=== PATIENT | male | born 1995 | race Caucasian/White ===

== ENCOUNTER 2023-08-10 08:00 | Outpatient (RCR) | payer OTHER, SELFPAY ==
--- NOTE | 2023-08-10 10:23 | BH.PSA_ITS ---
Source of Information Presenting Problems/Circumstances Problems, Referral Source, Mental Status, Client: The patient is a 28-year-old male with a history of depression, intermittent explosive disorder, ADHD, anxiety and possible autism who was referred to the [facility] behavioral health IOP by his outpatient counselor. Referred for worsening depression and anger in the last several months resulting in an outburst while on his honeymoon several months ago. Psychiatric Presentation Psych Issues & Need for Admission Psychiatric Issues:: depression, SI, self-harm via hitting himself, anger, and ADHD Past Psychiatric History MH Treatment Hx Treatment History: First mental health sx at age 14 when pt reports experiencing depression. Reports at 19 first counseling at age 19 for depression and marijuana misuse. First hospitalization:: Denies Medication Trials:: No ECT Therapy:: No Age of first mental health symptoms: First mental health sx at age 14 when pt reports experiencing depression. Reports at 19 first counseling at age 19 for depression and marijuana misuse. Describe (age, circumstance, etc) any past hospitalizations: Denies Current providers for mental health treatment (counselor, psychiatrist, residential case manager, etc.): Aylin Luevano for marital counseling and Dr. Doroteo Jean-Baptiste as individual outpatient provider through [facility] Childhood Significant Childhood Events: Pt went to [employer] and required help in school with extra tutoring but was not in special classes and was not on an IEP. From 1st-6th grade his mother to help him with his homework every day. Family Who currently lives in your home?: Pt lives with his new in an apartment with his parents residing near-by in the same city Family History Family Hx of Psychiatric or AOD Problems: Mother and father are both about 57 years old. Father has ADD. Maternal grandmother and sister have anxiety. No suicides in the family. Maternal great uncle is alcoholic. Ethnicity Culture Do you identify yourself with any particular cultural, ethnic background, or community?: No Sexuality Sexual Orientation: Heterosexual Spirituality Temple Do you currently identify with any organized voodoo?: Religion Beliefs Is there a particular form of support from this community you can use for your recovery?: Yes Mental Status Memory Recent Memory: Fair Remote Memory: Fair Concentration Concentration: Fair Eye Contact Eye Contact: Good Speech Speech: Pressured Thought Process Thought Process: Logical and [place] Insight: Fair Judgment: Fair Behavior: Normal and Anxious Orientation Orientation: Time, Person, Place and Situation Appearance Appearance: Neat/clean Mood Mood: Anxious and Depressed Affect Affect: Appropriate/calm Suicide Assessment Suicidal Ideation Have you ever felt like hurting yourself?: Yes Please explain:: Pt reports passive SI following moments in which she has had an danial outbursts resulting in guilt and feelings of hopelessness. Pt states that he has had impulsive thoughts of suicidal ideation but states that he has made verbal threats about suicide only to get attention from his or others. Were you using ETOH/drugs at the time?: No Suicidal Intentional Rating Scale (SIRS): Suicidal thoughts (past) Physician Notification Violent Behavior/Abuse History Homicidal Ideation Do you have any homicidal thoughts? If so, explain:: No Is there a known potential victim? If yes, who:: No Abuse Have you ever been abused?: No Life Events Are there any other significant life events?: Hardships (significant difficulties in school early on, loss of job a few years ago resulting in a failed lawsuit for reclaimed unemployment funds) Adult Social History Age 19 to Present Describe your current support system:: Describes his , parents, and employer as supports Substance Use Substance Substance Use Type: Alcohol (rarely), Marijuana (age 19 for 1 year, no longer uses) and Caffeine IV Substance Use Do you have a history of IV use?: Denies Leisure/Social Activities Interests What do you enjoy or might be interested in learning about?: He enjoys exercising and exercises 5 to 6 days a week involving running, weightlifting rowing and elliptical product trainer. 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 If yes, describe:: No Court Orders Have you had any past court orders for psychiatric treatment?: No Do you have a present court order for psychiatric treatment?: No Problem Checklist Current Problem Areas Problem List: Depressed mood/sad, Anxiety, Anger/aggression, Inattention and Additional psychosocial stressors (newly and having relationship tension) Discharge Planning Needs Anticipated Follow-Up Mental Health Center (Name/Phone Number):: [facility] Private Therapist/Psychiatrist:: Dr. Carmen Jean-Baptiste (individual), Aylin Luevano (couples) Other (to be determined): Maikel Lovell, pcp Family and Caregiver Contacts:: Sho Release of Information Signed:: Yes Social Sciences Department Chair's Assessment Client's Needs What are the client's goals?: Pt reports wanting to improve his ability to manage his emotions (specifically anger), better manage conflict, and improve stress tolerance What are the client's strengths?: Client is motivated, open about his mental health sx and stressors, willing to try new tx modalities, established with outpatient providers, and has a strong support system Diagnoses Diagnoses Diagnosis #1:: 1. Major depressive disorder, Recurrent, severe without psychosis Diagnosis #2:: 2. Intermittent explosive disorder (F63.81) Diagnosis #3:: 3. ADHD Diagnosis #4:: Role out, Autism Spectrum Disorder Interpretive Summary Interpretive Summary Interpretive Summary: The patient is a 28-year-old male with a history of depression, intermittent explosive disorder, ADHD, anxiety and possible autism who was referred to the [facility] behavioral health IOP by his outpatient counselor. Patient got in June 2023 and his mental health symptoms worsened after he got and reports having an anger outburst on his honeymoon following a disagreement with his . Reports some marital tension since and pt has experienced guilt, passive SI, and some worthlessness/hopelessness since .Patient reports an additional stressor as recent ADHD diagnosis. Reports he found out his father had ADD in the past and he never told the patient about it and the patient became angry that his father had not told him he was at risk for it. The patient has been perseverating on the evil in the world. Reports this was triggered by patient being fired in 2019 from his job and he appealed his unemployment claim but he lost the appeal which caused a lot of stress and anger. He has a history of lifelong issues with anger and social functioning. He denies any history of violence towards people but states he has been violent towards personal property. He endorses sadness and anger, hopelessness, worthlessness, guilt and passive thoughts of . He states that he has had impulsive thoughts of suicidal ideation but states that he has made verbal threats about suicide only to get attention from his or others. Pt denies homicidal ideation, hallucinations, delusions or symptoms of isela ever. For primary support he had is what he has his and friends and family. He is a worrier by nature and ruminates negatively. He denies panic attacks, OCD, eating disorder, trauma or PTSD. He does not have any access to guns. Treatment Plan Recommendations Recommendations Guidelines Recommendations:: The patient will start the IOP in behavioral health at [facility] as the structure, support, education and group therapy will hopefully prevent worsening of the patient's symptoms which could require hospitalization
--- NOTE | 2023-08-10 10:23 | BH.COMM_ITS ---
Communication Note Communication with Client Communication Note: Met with pt to complete initial paperwork and administer the CSSR-S assessment and screening. Updated intake since initial meeting. Pt reports slight increase in depressive sx and passive SI. Reports SI lasts only a few seconds and that he does not truly want to , but sometimes feels hopeless and as if he will never be able to manage his emotions in healthy ways. States depression is usually associated with feeling he is a burden or ?evil person? and does not want to hurt others. Pt reports he does not want to hurt anyone and feels others would be better off without him. Reports his sx escalated to point of putting a knife to his throat last 08/05/22. Upon further inquiry, pt adits this was to get attention from his as he was feeling unwanted and unloved. Denies actually planning to harm himself. Denies suicidal ideation, plan, or intent since. Reports ability to maintain safety and shared , parents, friends, and work are protective factors. Pt reports he has impulsively put a knife to his throat or wrists ?very rarely? in the past, first at age 17. Pt unsure of allison many times but believes it was under 5. Denies ever engaging in cutting himself/breaking the skin. Hx of self-harming via hitting himself, last occurred Tuesday as well. No access to firearms. Pt is a moderate risk per CSSR given hx and recent gesture. Discussed with tx team and pt will be admitted to [facility] level of care with diagnosis of Major depressive disorder F33.2
--- NOTE | 2023-08-10 10:24 | BH.MTP_ITS ---
Master Treatment Plan Patient Information Program Physician:: Dr. Rosy Funes Primary Therapist:: TERESA Carroll Psychiatric Diagnoses Psychiatric Diagnoses:: 1. Major depressive disorder, 2. Intermittent explosive disorder (F63.81) 3. ADHD 4. Rule out autism spectrum disorder high functioning Diagnosis Code(s):: F33.2 Estimated LOS Estimated LOS (in weeks):: 6 Problem/Goal #1 Problem/Goal #1 Stated Goal:: Pt will reduce depressive symptoms, worthlessness, thoughts of , hopelessness, and irritability due to Major Depressive Disorder through IOP Services. Description of Barriers: Pt reports a hx of anger issues, difficulties with social functioning at times, and hx of difficulties processing information quickly. Functional Impact: The patient is a 28-year-old male with a history of depression, intermittent explosive disorder, ADHD, anxiety and possible autism who was referred to the [facility] behavioral health IOP by his outpatient counselor. Patient got in June 2023 and his mental health symptoms worsened after he got and reports having an anger outburst on his honeymoon following a disagreement with his . Reports some marital tension since and pt has experienced guilt, passive SI, and some worthlessness/hopelessness since .Patient reports an additional stressor as recent ADHD diagnosis. Reports he found out his father had ADD in the past and he never told the patient about it and the patient became angry that his father had not told him he was at risk for it. The patient has been perseverating on the evil in the world. Reports this was triggered by patient being fired in 2019 from his job and he appealed his unemployment claim but he lost the appeal which caused a lot of stress and anger. He has a history of lifelong issues with anger and social functioning. He denies any history of violence towards people but states he has been violent towards personal property. He endorses sadness and anger, hopelessness, worthlessness, guilt and passive thoughts of . He states that he has had impulsive thoughts of suicidal ideation but states that he has made verbal threats about suicide only to get attention from his or others. Pt denies homicidal ideation, hallucinations, delusions or symptoms of isela ever. For primary support he had is what he has his and friends and family. He is a worrier by nature and ruminates negatively. He denies panic att acks, OCD, eating disorder, trauma or PTSD. He does not have any access to guns. Goal Relevant Strengths/Supports: Pt is resilient, willing to ask for help, and motivated to better understand and manage his mental health sx. Objectives Objective #1: Stated Objective: Pt will learn and utilize 2-3 healthy coping strategies to better manage depressive symptoms and reduce DSM-5 symptoms for depression, anger, and SI. Interventions: Through group and individual sessions, therapist will help pt identify triggers and warning signs of depression and emotional dysregulation including emotional, physical, and behavioral changes. Therapist will teach pt various coping skills to manage his symptoms. Therapist will use cognitive restructuring techniques and help pt gain awareness of negative thoughts that reinforce depressive cycles. Therapist will help pt incorporate mindfulness and emotional regulation skills when dealing with difficult situations. Discharge Criteria: Pt will have met this goal when he can report learning and using at least 2 coping skills to manage depressive symptoms and his DSM-5 scores for depression, anger, and SI have decreased Target Date: 09/21/23 Review Date: 08/31/23 Objective #2: Stated Objective: Pt will identify at least 2-3 negative self-talk messages used to reinforce negative core beliefs, worthlessness, and isolation and replace thoughts with balanced, realistic messages. Interventions: Therapist will help pt identify distorted, negative beliefs about self and replace with more realistic, affirmative messages. Therapist will use CBT and DBT to help pt increase insight to the connection between thoughts, emotions, and behaviors. Therapist will encourage pt to practice thought challenging. Discharge Criteria: Pt will have achieved this goal when can verbalize at least 2 cognitive distortions and effectively replace those thoughts with affirmative messages. Problem/Goal #2 Problem/Goal #2 Stated Goal:: Pt will reduce anxiety, avoidance, and ruminations. Description of Barriers: Pt reports a hx of anger issues, difficulties with social functioning at times, and hx of difficulties processing information quickly. Functional Impact: The patient is a 28-year-old male with a history of depression, intermittent explosive disorder, ADHD, anxiety and possible autism who was referred to the [facility] behavioral health IOP by his outpatient counselor. Patient got in June 2023 and his mental health symptoms worsened after he got and reports having an anger outburst on his honeymoon following a disagreement with his . Reports some marital tension since and pt has experienced guilt, passive SI, and some worthlessness/hopelessness since .Patient reports an additional stressor as recent ADHD diagnosis. Reports he found out his father had ADD in the past and he never told the patient about it and the patient became angry that his father had not told him he was at risk for it. The patient has been perseverating on the evil in the world. Reports this was triggered by patient being fired in 2019 from his job and he appealed his unemployment claim but he lost the appeal which caused a lot of stress and anger. He has a history of lifelong issues with anger and social functioning. He denies any history of violence towards people but states he has been violent towards personal property. He endorses sadness and anger, hopelessness, worthlessness, guilt and passive thoughts of . He states that he has had impulsive thoughts of suicidal ideation but states that he has made verbal threats about suicide only to get attention from his or others. Pt denies homicidal ideation, hallucinations, delusions or symptoms of isela ever. For primary support he had is what he has his and friends and family. He is a worrier by nature and ruminates negatively. He denies panic att acks, OCD, eating disorder, trauma or PTSD. He does not have any access to guns. Goal Relevant Strengths/Supports: Pt is resilient, willing to ask for help, and motivated to better understand and manage his mental health sx. Objectives Objective #1: Stated Objective: Pt will identify 2-3 anxiety triggers and 2 coping skills to use when feeling anxious to manage anxiety as shown by reducing DSM-5 scores for anxiety Interventions: Therapist will provide education on anxiety, avoidance behaviors, and maintenance cycles. Therapist will help pt explore personal symptoms and warning signs of anxiety. Therapist will teach pt coping skills to improve emotional regulation, mindfulness, and distress tolerance to help pt cope with anxiety in the moment. Discharge Criteria: Pt will have accomplished this goal when he can bernardino ntify at least 2 triggers and report using 2 coping skills to manage anxiety. Additionally, pt will have accomplished this goal AEB reduction of DSM-5 scores for anxiety. Target Date: 09/21/23 Review Date: 08/31/23 Objective #2: Stated Objective: Pt will increase ability to manage stressors and anxiety by gaining 2-3 distress tolerance skills. Interventions: Through group and individual therapy, pt will learn various coping skills to help manage stress and anxiety. Therapist will utilize DBT distress tolerance skills to increase awareness and give pt tools to manage anxiety and triggers more effectively. Therapist will provide psychoeducation on emotional regulation and help pt identify unhealthy coping skills he wants to change. Discharge Criteria: Pt will have accomplished this goal when can report improved ability to manage stressors and identify at least 2 distress tolerance skills. Target Date: 09/21/23 Review Date: 08/31/23
--- NOTE | 2023-08-10 13:18 | BH.PSY.EVA_ITS ---
Psychiatric Evaluation Initial Evaluation Initial Evaluation: History of Present Illness: [] The patient is a 28-year-old male with a history of depression, intermittent explosive disorder, ADHD, anxiety and possible autism who was referred to the [facility] behavioral health IOP by his outpatient counselor. The patient was on June 25, 2023 and currently lives with his 26-year-old and his parents live nearby and are supportive. The patient's works and is also studying for the [employer] as she is premed. 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 Patient got in June 2023 and his mental health symptoms worsened after he got and he was having anger outburst on his honeymoon which was June 27 to July 05, 2023. This caused some marital issues and the patient also then became depressed. He has had passive thoughts of and passive suicidal ideation. The patient states that he held a knife to his throat 5 days ago to get attention from his and states that he was not suicidal. Patient also was upset because he found out his father had ADD in the past and he never told the patient about it and the patient was diagnosed with ADHD in January 2022 and the patient became angry that his father had not told him he was at risk for it. The patient was perseverating on the evil in the world at his intake but he says this has lessened now that he is on Lexapro for the past week. The patient was fired in 2019 from his job and he appealed his unemployment claim but he lost the appeal and had to pay money in January 2022 or and this also caused a lot of stress and anger. He has a history of lifelong issues with anger and social functioning. He denies any history of violence towards people but states he has been violent towards personal property. He endorses sadness at times and anger at other times. He endorses hopelessness, worthlessness and guilt. He enjoys working out with weights still and his job and his . His weight and appetite are stable and he is sleeping 7 to 8 hours a night. Energy level is okay and concentration is okay if he takes his Vyvanse. He endorses guilt and passive thoughts of . He states that he has had impulsive thoughts of suicidal i deation but states that he has made verbal threats about suicide only to get attention from his or others. He states that about 10 days ago he felt that he may have had active suicidal ideation impulsively but had no definite plan. He denies homicidal ideation, hallucinations, delusions or symptoms of isela ever. For primary support he had is what he has his and friends and family. He is a worrier by nature and ruminates negatively. He denies panic attacks, OCD, eating disorder, trauma or PTSD. He does not have any access to guns. He has never cut or burn himself but he has been passed his head and on a door and he hits himself at times in the head since childhood. Current Psychiatric Medications: [] Vyvanse 20 mg p.o. every morning; Lexapro 10 mg p.o. daily (x 8 days) Past Psychiatric History: [] He has a Dr. Jean-Baptiste is his counselor and Dr. Romo as his couples therapist. PCP gives meds. First counseling at age 19 for depression and using too much marijuana. He was first depressed at age 14 but took his first psych meds around age 27 which was Adderall XR for ADHD. No psych admits ever no suicide attempts ever and no other psych meds. Substance Use History: [] Heavy marijuana use is a at age 19 for 1 year. Last use marijuana few years ago. Non-smoker no vaping and no other drugs. Uses alcohol Allergies: [] Versed Medications: [] Psych meds as dictated above plus several supplements including 5-hydroxytryptophan, protein powder and vitamins. Past Medical History: [] No illnesses. Had a mole removed at age 12 and wisdom teeth surgery. Normal sexual function. Heterosexual. Family Psychiatric History: [] Mother and father about about both about 57 years old. Father has ADD. Maternal grandmother and sister have anxiety. No suicides in the family. Maternal great uncle is alcoholic. Patient says that his whole mom's family has addictive personality and to him it means that they get hooked on different topics and obsess over them. Personal/Social History: [] Patient was born in [place] and raised in [place] and describes his childhood as having loving parents but having a lot of learning challenges . He went to [employer] and required help in school with extra tutoring but was not in special classes and was not on an IEP. From 1st-6th grade his mother to help him with his homework every day. He denies any verbal, physical or sexual trauma. He graduated high school. He went to [employer] got a BS and visual sciences or emergent digital technology is which involve a lot of computer and security stuff. He enjoys exercising and exercises 5 to 6 days a week involving running, weightlifting rowing and elliptical care trainer. He got in June 2023 and they have been together almost 4 years. His is supportive and they have been doing okay but he says their marriage was a little ashely due to his mental health issues recently. But he loves his deeply. Legal History: [] No arrests. Has furniture delivery driver's license. No DUIs. Review of Systems: [] Negative except as noted in present illness. Vital Signs: [] Vital signs reviewed in nurses notes and updated and the patient is deemed medically able to participate in the IOP. Laboratory: Patient does not remember having blood work in recent years. Mental Status Examination: [] The patient is a 28-year-old male wearing glasses and otherwise appearing normal for stated age and ambulatory with a normal gait. He is casually dressed and groomed with good hygiene he has no psychomotor agitation or retardation. He is cooperative and pleasant during the interview. Eye contact is good and speech is normal rate and rhythm and fluent with no pressure. Mood is depressed and angry at times. Affect is full and normal. Thought process is goal-directed and organized. Thought content: There is evidence of passive thoughts of and recent suicidal ideation but no current suicidal ideation. There is no evidence of plan for suicide, homicidal ideation, hallucinations, delusions or isela symptoms. Reality testing is intact. Intelligence is above average. Judgment is intact. Insight is limited but some present. Diagnoses: [] Recurrent, severe without psychosis 1. Major depressive disorder, 2. Intermittent explosive disorder (F63.81) 3. ADHD 4. Rule out autism spectrum disorder high functioning 4. Primary support issues Plan: [] The patient will start the IOP in behavioral health at [facility] as the structure, support, education and group therapy will hopefully prevent worsening of the patient's symptoms which could require hospitalization. He felt safe during the interview and if it anytime he does not feel safe he will let us know or go to the emergency room. No medication changes were made today as he is only been on his Lexapro for 1 week. Long discussion was had with the patient that he should discontinue his 5- hydroxytryptophan when he is taking SSRIs as they could cause excess serotonin symptoms. Patient agrees to get blood work in the form of a TSH and a vitamin D. He will continue to follow-up with his outpatient providers and I will see the patient in follow-up in 2 weeks.
--- NOTE | 2023-08-10 13:31 | BH.DR.ITP ---
Initial Treatment Plan Patient Information Visit Information: ADMISSION DATE: EXPECTED LOS: 4-6 weeks Problems/Symptoms Problem #1:: Mood lability Symptom:: Depression, sadness, anger outbursts, hopelessness, worthlessness, passive thoughts of , guilt, thoughts of self-harm and recent suicidal ideation Problem #2:: Anxiety Symptom:: Worry, rumination
--- NOTE | 2023-08-11 09:05 | BH.SGPN.GN ---
Behaviors/Verbalizations/Mental Status: [] Pt alert and oriented, casually dressed and groomed. Eye contact good. Motor activity appropriate. Speech within normal limits. Affect congruent, mood content. Thoughts linear, logical, no signs of hallucinations or delusions. Reviewed pt?s symptom tracker, no risk for suicidal ideation, plan, or intent 08/11/23 Client Response/Progress/Benefit: []Pt responded well to session, participating in processing and providing supportive feedback. Pt reports feeling hopeful this morning sharing that it is his first day in the program and he is excited about learning new skills. Discussed a hx of difficulties in regulating his emotions, specifically anger. Shared this has begun to impact his marriage and he is looking forward to learning how to better recognize and manage his emotions and handle conflict in healthier ways. Additionally shared newly being diagnosed with ADHD and Autism which he is looking to learn how to better navigate. Pt appeared to benefit from self-reflection on areas of progress, as well as from group support. Pt will continue IOP tx to improve mood stability, continue to provide support, and improve distress tolerance. Narrative Note: []
--- NOTE | 2023-08-11 10:10 | BH.SGPN.GN ---
Behaviors/Verbalizations/Mental Status: [] Eye contact is good. Motor activity is appropriate. Appearance is casual. Speech is Appropriate. Mood is euthymic. Affect is congruent. Thoughts are linear and logical. No evidence of psychosis. Client Response/Progress/Benefit: []Pt engaged participant AEB listening to others, engaging in activity, and providing feedback at times. Attentive during psychoeducation and provided insight into obstacles in the way of mental wellness. Pt shared with group current mental health reality and desired mental health reality. Stated coming to IOP as step he is currently making to get closer to desired reality. Identified barriers to desired reality include: Not enough time, fair judgment, low energy, behind on priorities, and is not interested in things. Benefited from taking look at current mental health state and obstacles for progress. Pt to continue IOP to improve daily functioning, improve distress tolerance, and prevent decompensation.
--- NOTE | 2023-08-11 11:10 | BH.SGPN.GN ---
Behaviors/Verbalizations/Mental Status: []Pt alert and oriented, casually dressed and groomed. Eye contact good. Motor activity appropriate. Speech within normal limits. Affect congruent, mood anxious, depressed. Thoughts linear, logical, no signs of hallucinations or delusions. Client Response/Progress/Benefit: []Pt first day of tx and did well to remain an active participant, encouraging peers and contributed as group brainstormed ideas on how to cope with internal barriers that keep Pt's stuck from moving towards goals. Worked with group to identify strategies to help overcome barriers. Identified personal barriers to desired reality. Pt wants to work on overcoming the barrier of low motivation by rewarding himself with 5 minutes of an enjoyable activity after completing 3 small tasks. Benefited from group by identifying obstacles and solutions to desired reality.? Pt to continue IOP to improve mood stability, reduce the use of unhealthy coping skills, and improve self-compassion. Narrative Note: []
--- NOTE | 2023-08-12 09:05 | BH.SGPN.GN ---
Behaviors/Verbalizations/Mental Status: [] Pt alert and oriented, neatly dressed and groomed. Eye contact good. Motor activity appropriate. Speech rapid and tangential-appears to be pt's baseline per his report. Affect congruent, mood hopeful Thoughts linear, logical, no signs of hallucinations or delusions. Reviewed pt?s symptom tracker, no risk for suicidal ideation, plan, or intent 08/12/23 Client Response/Progress/Benefit: []Pt responded well to session, attentive and receptive to feedback. Pt reports feeling determined this morning as pt feels ready to get better and work on his anger issues. Pt shared he has to accept the way I have acted to my and the circumstances that led to pt getting mental health treatment. Pt reported one of the reasons he came to IOP was because he had a public outburst towards his on their honeymoon. Pt reported he has lived with ADHD, anger, and potential Autism Spectrum for many years. Pt reeceptive to group feedback and encouragement which pt appeared to benefit from. Pt will continue IOP tx to prevent decompensation, improve healthy coping skills, and improve daily functioning. Narrative Note: []
--- NOTE | 2023-08-12 10:00 | BH.SGPN.GN ---
Behaviors/Verbalizations/Mental Status: [] Client alert and oriented, casually dressed and groomed. Eye contact good. Motor activity appropriate. Speech within normal limits. Affect congruent, mood euthymic. Thoughts linear, logical, no signs of hallucinations or delusions. Client Response/Progress/Benefit: [] Client responded well to session, contributing to discussion and engaged during the activity. Attentive during discussion on the quote. Group identified the benefits of change which included: personal growth, increased confidence, improving mental health, and creating momentum. Worked with the group to identify barriers to change, which included: uncomfortable emotions such as anxiety, lack of motivation, fatigue, pain, and physical barriers. Client also reflected on how past experiences shaped way he goes about changed, gave example of struggling to learn to things when he was younger makes it hard for him to make changes. Client participated along with group in activity where they identified and discussed the emotions related to change. Benefited from increased awareness and understanding of emotions, benefits, and barriers related to change. Will continue IOP tx to continue to combat distortions that reinforce low self-esteem, anxiety, and depression. Narrative Note: []
--- NOTE | 2023-08-12 11:10 | BH.SGPN.GN ---
Behaviors/Verbalizations/Mental Status: [] Client alert and oriented, casually dressed and groomed. Eye contact good. Motor activity appropriate. Speech within normal limits. Affect congruent, mood euthymic. Thoughts linear, logical, no signs of hallucinations or delusions. Client Response/Progress/Benefit: [] Client responded well to session, attentive and provided in put throughout. Did well to process activity and work with group to relate the strategies used to overcome barriers in the activity to managing change in own life. Client identified a goal they would like to make is to support desired change is to journal everyday and stay consistent. Client identified currently being in contemplation stage for this particular change. Appeared to benefit from identifying a small goal to work towards. Client will continue IOP tx to prevent decompensation, gain healthy coping skills, and improve daily mood. Narrative Note: []
--- NOTE | 2023-08-18 10:10 | BH.SGPN.GN ---
Behaviors/Verbalizations/Mental Status: []Pt alert and oriented, casually dressed and groomed. Eye contact good. Motor activity appropriate. Speech within normal limits. Affect congruent, mood euthymic. Thoughts linear, logical, no signs of hallucinations or delusions. Client Response/Progress/Benefit: []Pt receptive of session, actively engaged throughout AEB taking notes, providing input, and listening to discussion. Appeared to connect with group topic of cognitive distortions and the impact of thought patterns on mental health, coping behaviors, and relationships. Pt connected most with distortions of labeling, all or nothing thinking, and jumping to conclusions. Pt appeared to benefit from gaining insight on distorted thinking patterns and how this impacts overall mental health. Will continue IOP tx to continue building healthy coping skills, improve distress tolerance, and prevent decompensation.
--- NOTE | 2023-08-18 11:15 | BH.SGPN.GN ---
Behaviors/Verbalizations/Mental Status: [] Eye contact is good. Motor activity is within normal limits. Appearance is casual. Speech is Appropriate. Mood is content. Affect is congruent. Thoughts are linear and logical. No evidence of psychosis. Client Response/Progress/Benefit: [] Pt was an active participant during group discussions and activity. Pt was placed in a smaller group and participated in quiz-show format in which small groups competed against each-other to answer questions based on identifying, challenging, and reframing cognitive distortions. Pt was engaged in the smaller group, participated in group interactions to brainstorm answers, and appeared to be comprehending cognitive distortions. Stated learning that ?Often times distorted thoughts lead to pt feeling scattered and becoming angry?. Benefited from gaining further insight and awareness of cognitive distortions as well as practicing ways to reframe and challenge thoughts. Will continue in [facility] to promote use of anger management skills, stabilize mood, and improve communication with supports. Narrative Note: []
--- NOTE | 2023-08-18 14:26 | BH.MDN_ITS ---
Multi-Disciplinary Note Note 30-min Individual: Time Started:: 09:27 Date: 08/18/23 Purpose of session/treatment goals addressed:: To address current stressors, gather more information on pt's history and tx goals, and build trust and rapport. Additionally, began working on identifying anger warning signs and triggers. Eye Contact:: Good Motor Activity:: Appropriate Appearance:: Neat and Casual Speech:: Appropriate Mood:: Anxious and Dysthymic Affect:: Congruent Thoughts:: Linear, Logical and No evidence of hallucinations/delusions noted Staff Interventions:: motivational interviewing, rapport building, strengths perspective, treatment planning and taught coping skills (deep angelica athing and progressive muscle relaxation) Client Response:: Pt responded well to session, open to meeting with therapist. Pt shared he feels the IOP program has been enjoyable thus far and he has already learned skills he is using in his home life. Pt described practicing healthy distraction when recognizing he is becoming upset, scattered, or agitated. Provided an example from this past weekend in which pt removed himself from the environment and took time outside to load the [place] presents into the car. Shared he recognized his thoughts were scattered and remaining in the house would have only escalated things, so he took a step away. Pt shared struggling with lifelong anger which was resurfaced during his honeymoon in June where pt had a ?public outburst?. Pt described increased marital discord since and has begun couple?s counseling in recent weeks. Therapist commended pt for use of emotion regulation skills over the weekend and taking steps to seek help with anger management. Therapist inquired further on what warning signs informed him his anger was increasing. Pt identified feeling warmer, pacing, clenched fists/jaw, muttering to himself, and experiencing an urge to scream. Pt has some insight into his biggest anger trigger as others using a dominating or condescending tone. Shared this happens at times when having a disagreement with his and often escalates the situation. Has created a ?code word? to indicate a need for a break in the discussion, but has limited skills for managing his anger outside of distraction. Receptive of learning and practicing skills of deep breathing and progressive muscle relaxation. Goal to practice over the next week. Pt reports he would like to learn additional grounding and distress tolerance skills. Risks/Concerns:: None noted. Pt denies SI, plan, or intent as of this date 08/19/23 Progress Toward Goals/Plan:: Pt's third day of IOP tx, so no progress to document. Pt reports that his mood has improved since gaining support of the IP program and he is hopeful he will continue to make progress in managing his emotions and stress. Pt identified his tx goals as learning how to talk about his stressors, improve conflict resolution, and better manage his anger. Pt will continue IOP tx to prevent decompensation, improve daily functioning, and increase healthy coping skills. Time Stopped:: 10:00
--- NOTE | 2023-08-19 09:05 | BH.SGPN.GN ---
Behaviors/Verbalizations/Mental Status: [] Pt alert and oriented, neatly dressed and groomed. Eye contact good. Motor activity appropriate. Speech within normal limits. Affect congruent, mood euthymic. Thoughts linear, logical, no signs of hallucinations or delusions. Reviewed pt?s symptom tracker, no risk for suicidal ideation, plan, or intent 08/19/23 Client Response/Progress/Benefit: []Pt responded well to session, participating in the GLAD activity. Pt reports feeling secure this morning sharing that he is not worried about the past or the present right now. PT stated he had couple's counseling last night and it was needed, but there were also some hard truths that pt had to face. Pt stated he is working on bettering himself and he feels grateful for IOP and the acceptance he has received from peers. Pt's stressor today is that he still struggles with the urge to avoid being uncomfortable which has prevented pt from getting better in the past. Pt appeared to benefit from practicing a self-reflection technique and from group support. Pt will continue IOP tx to promote mood stability, increase distress tolerance skills, and improve daily functioning. Narrative Note: []
--- NOTE | 2023-08-19 10:10 | BH.SGPN.GN ---
Behaviors/Verbalizations/Mental Status: []Pt alert and oriented, casually dressed and groomed. Eye contact good. Motor activity appropriate. Speech within normal limits. Affect congruent, mood anxious and euthymic. Thoughts linear, logical, no signs of hallucinations or delusions. Client Response/Progress/Benefit: [] Pt receptive to session AEB contributing to small group discussion, as well as listening attentively to others, and taking notes. Worked with group to brainstorm the positive and negative aspects of stress on physical and mental health. Group did well to identify the benefits of stress as well as the impact of distress on performance, relationships, and mental health. Pt identified their personal top stressors as: work, managing IOP progress, relationship, and exercise. Pt reports when their jar is ?overflowing? pt often gets overstimulated and has a hard time being productive. Pt seemed to benefit from increased awareness of current stressors and impact stress has on mental health. Recommended to continue IOP tx to increase consistent healthy coping skills, improve confidence, and prevent decompensation.
--- NOTE | 2023-08-19 11:10 | BH.SGPN.GN ---
Behaviors/Verbalizations/Mental Status: []Pt alert and oriented, casually dressed and groomed. Eye contact good. Motor activity appropriate. Speech within normal limits. Affect congruent, mood anxious and euthymic. Thoughts linear, logical, no signs of hallucinations or delusions. Client Response/Progress/Benefit: [] Pt was an active participant in group discussions and experiential activity. Was able to identify the connection between the experimental activity and utilization of stress management skills. Pt reported good succeeded because of their clear communication. Attentive during psychoeducation on the 4 A's (Avoid, adapt, alter, accept) of coping with stress. Pt shared plans to utilize the skill of accepting. Pt wants to work on this by accepting that as long as he is moving his body it's healthy for him and it's okay to not always follow what he considers his optimal exercise plan . Benefited from increased awareness of stress management strategies. Will continue in IOP to increase healthy coping skills, improve daily functioning, and prevent decompensation.
== END 2023-08-21 23:59 ==
LOC: BHIOP 08:00
PROVIDERS: Referring Provider Psychiatry & Neurology Psychiatry; Visit Provider Psychiatry & Neurology Psychiatry
DX: F33.2 Major depressive disorder, recurrent severe without psychotic features (principal); F63.81 Intermittent explosive disorder; F90.9 Attention-deficit hyperactivity disorder, unspecified type; R45.851 Suicidal ideations; Z79.899 Other long term (current) drug therapy
CPT/HCPCS: S9480; 90832; 90853

== ENCOUNTER 2023-08-23 07:31 | Outpatient (RCR) | payer OTHER, SELFPAY ==
--- NOTE | 2023-08-25 10:15 | BH.SGPN.GN ---
Behaviors/Verbalizations/Mental Status: []Pt alert and oriented, casually dressed and groomed. Eye contact good. Motor activity appropriate. Speech within normal limits. Affect congruent, mood dysthymic and anxious. Thoughts linear, logical, no signs of hallucinations or delusions. Client Response/Progress/Benefit: []Pt an active participant throughout. Participated during interactive discussion on defining conflict (internal/external) and possible benefits to conflict. Attentive during psychoeducation on conflict styles and engaged during small group activity in which peers identified the benefits and consequences to each conflict style. Pt identified their primary conflict style as avoiding and reports he has done this his whole life so it's a habit now. Shared this has impacted his relationships in the past and more recently. Benefited from increased awareness of the impact of conflict styles in mental health. Will continue in IOP to reinforce healthy coping skills, improve communication with supports, and improve mood stability. Narrative Note: []
--- NOTE | 2023-08-25 11:15 | BH.SGPN.GN ---
Behaviors/Verbalizations/Mental Status: []Pt alert and oriented, neatly dressed and groomed. Eye contact good. Motor activity appropriate. Speech within normal limits. Affect congruent, mood dysthymic. Thoughts linear, logical, no signs of hallucinations or delusions. Client Response/Progress/Benefit: []Pt was an active participant in group discussions and activity. Attentive during psychoeducation. Along with peers was able to reflect on what conflict resolution skills can be useful outside of IOP. Pt chose to continue to work on the conflict resolution skill of taking a time out if things get too heated. Benefited from practicing and learning conflict resolution skills. Will continue in IOP to prevent decompensation, improve daily functioning, and gain emotional regulation skills. Narrative Note: []
--- NOTE | 2023-08-25 11:54 | BH.MDN_ITS ---
Multi-Disciplinary Note Note 45-min Individual: Time Started:: 09:17 Date: 08/25/23 Purpose of session/treatment goals addressed:: Purpose of session was to address tx plan goal #2, as well as identify assertive communication skills he can use in setting boundaries within interpersonal relationships. Eye Contact:: Good Motor Activity:: Appropriate Appearance:: Neat and Casual Speech:: Appropriate Mood:: Euthymic and Anxious Affect:: Congruent Thoughts:: Linear, Logical and No evidence of hallucinations/delusions noted Staff Interventions:: thought challenging, CBT techniques, strengths perspective and taught coping skills (assertive communication skills) Client Response:: Pt responded well to session, openly discussed current sx and stressors. Shared he has seen some improvements in managing his anger, but continues to struggle at times. Did reports practicing progressive muscle relaxation and deep breathing skills during times in which he recognizes his anger warning signs or can tell he has been triggered. Pt shared these skills have helped to calm him and prevent further escalation. Pt went on to discuss that his primary stressor continues to be marital conflict. Reports that a common issue within their marriage is that his feels pt sides with his parents or does not ?stand-up? for her enough. Provided an example of pt?s parents asking multiple follow-up questions if pt and his cancel plans last minute. Pt explained his struggles with several health issues and he does not want to violate her boundaries by sharing additional information when needing to cancel due to an unexpected change in her health. Pt reports he often struggles with oversharing or coming off as ?too short or cold? which upsets his mother. Receptive of discussion on assertive communication and boundary setting with his parents. Went on to discuss the most recent exchange between he and his that had both confused and concerned him. Explained that since his outburst on their honeymoon, his has been bringing up anytime in the past pt did or said something that hurt her feelings. Pt reports wanting to validate her emotions and be empathetic but does not know what he should say or do. Provided an example for earlier in the week in which his brought up something pt said 3 years ago that he had not been aware had bothered her. He expressed trying to apologize and explain he had not meant anything by the comment, but that his had not believed him. Therapist gently challenged pt belief he is responsible for his ?s emotions and aided pt in seeing when he made progress in communication regarding how he handled the exchange. Additionally, discussed addressing this with his and reviewed why bringing up past mistakes in a relationship can be toxic to the health of the relationship moving forward. Pt able to recognize this can maintain resentment, lead to additional conflict, and prevent from enjoying and growing the relationship in the present. Receptive of discussion on forgiveness does not mean condoning the past. Pt inquired what he could say to his to provide validation but also establish a boundary. With further discussion, pt able to identify a phrase he can use. Reports plans to practice telling his ?I understand your upset and I hate seeing you in pain; however, reliving these mistakes isn?t helping either of us, I need to step away and take a break from this conversation?. Reports plans to then leave to give them both space and practice a grounding skill. Risks/Concerns:: None noted. Pt denies suicidal ideation, plan, or intent as of this date 08/25/23. Progress Toward Goals/Plan:: Pt's third day of IOP tx, some progress noted. Pt reports that he continues to struggle with anger/irritability but is improving in his ability to identify warning signs and implement healthy grounding/distress tolerance skills in this moment to prevent from further escalation. Reports connecting with progressive muscle relaxation. Primary complaint today is difficulties with boundaries and communication within conflict. Receptive of learning communication skills and willing to create a sma ll goal for himself to practice when experiencing conflict in the next week. Pt will continue IOP tx to prevent decompensation, improve communication within interpersonal relationships, and increase healthy coping skills Time Stopped:: 10:05
--- NOTE | 2023-08-26 09:01 | BH.SGPN.GN ---
Behaviors/Verbalizations/Mental Status: [] Pt alert and oriented, Casually dressed and groomed. Eye contact good. Motor activity appropriate. Speech within normal limits. Affect congruent, mood slightly anxious. Thoughts linear, logical, no signs of hallucinations or delusions. Reviewed pt?s symptom tracker, no risk for suicidal ideation, plan, or intent. Client Response/Progress/Benefit: []Client responded well to session as evidenced by listening attentively to others and sharing with others. Per symptom tracker client reported a 0/5, with 5 being severe, for depressed mood and a 1/5 for anxiety. Client reported he is feeling stressed this morning about his relationship because he had a conflict with his last night. Client stated he tried to talk to his about why she was upset, but she kept saying she can't believe he doesn't know what he did. Client reported when frustrated last night he chose to leave the house and go get something from a convenience store down the road to give himself time to cool down. Client stated he isn't sure if his was upset he left, but he explained to her that he is using his skills of taking a break to avoid any anger outbursts. Client noted additional positive as do better with managing anxiety while at work. Seemed to benefit from support from peers. Client to continue IOP to promote use of healthy coping skills, challenge distortions, and prevent decompensation.
--- NOTE | 2023-08-26 10:10 | BH.SGPN.GN ---
Behaviors/Verbalizations/Mental Status: [] Client alert and oriented, casually dressed and groomed. Eye contact good. Motor activity appropriate. Speech within normal limits. Affect congruent, mood anxious. Thoughts linear, logical, no signs of hallucinations or delusions. Client Response/Progress/Benefit: [] Client was an active participant, AEB taking notes and providing input in group discussions and activities. Attentive during psychoeducation. Client engaged during interactive discussion in which the group defined self-care and discussed its benefits. Group discussed barriers to engaging in self-care as well as benefits which included; decreased irritability, decreased stress/anxiety, improved physical health, increased productivity, etc. Client participated in small group where they worked to identify common self-care ?myths? (self-care is selfish, self-care is self-indulgent, self-care is just personal hygiene, self-care should be fun, self-care is too time consuming, I don?t deserve it, self-care means I?m not being productive).Benefited from increased awareness of self-care, its benefits, and the consequences of not utilizing self-care strategies. Will continue IOP tx to prevent decompensation, stabilize mood, and increase healhty coping strategies. Narrative Note: []
--- NOTE | 2023-08-26 14:52 | BH.MDN ---
Multi-Disciplinary Note Note 30-min Individual: Time Started:: 11:14 Date: 08/26/23 Purpose of session/treatment goals addressed:: Pt requested session to process recent stressor and review conflict resolution/effective communication skills discussed in prior session. Eye Contact:: Good Motor Activity:: Appropriate Appearance:: Neat and Casual Speech:: Appropriate Mood:: Anxious and Dysthymic Affect:: Congruent Thoughts:: Linear and No evidence of hallucinations/delusions noted Staff Interventions:: psychoeducation on: (rules of 'fair fighting'), CBT techniques and taught coping skills (reviewed phrases for assertive communication) Client Response:: Pt requested to meet with therapist to process/break down a recent conflict with his . Reports feeling confused and unsure of ?what went wrong? as pt states ?I did everything we talked about, I used all the skills? to no avail. Shared that his again brought up a conversation from several years ago and was upset by it. He reports not knowing what triggered this as they were watching t.v. and she began to discuss still feeling hurt by a comment pt had made 3 years ago. Pt described communicating empathy, apologizing, and requesting they focus on the present and their relationship moving forward. Pt?s however had difficulties in accepting this boundary and continued to discuss times pt had done or said something she found hurtful. Pt again communicated the boundary and shared that he was going to go to the store to get a snack as he needed a break and did not want to argue. Pt commended for application of assertive communication skills in setting a boundary and addressing the conflict, as well as use of emotion regulation skills. Reported however that his was more upset that he left and ultimately ended up sleeping in another room. Pt expressed to her that he did not know what he had done wrong, which further escalated her emotions. Pt reports feeling frustrated and lost as to what he could have done differently. Pt has previously reported his has a trauma hx, and he was receptive of discussion on how trauma can impact emotion regulation. Additionally, able to understand that although he is making healthy changes in how he responds to conflict and self regulates, he does not have control over whether or not his also makes these changes. Pt reported feeling somewhat less confuse. He is willing to continue to implement the skills he has learned regarding interpersonal relationships, conflict, and communication. Expressed plans to communicate ?I understand you?re upset and I don?t think it would be helpful for us to discuss this right now. I?m going to give you some space and when you are ready, I am willing to discuss further?. Risks/Concerns:: None noted. Pt denies suicidal ideation, plan, or intent as of this date 08/26/23 Progress Toward Goals/Plan:: Progress noted. Pt reports actively internalizing and applying communication and conflict resolution skills when discussing a conflict with his . Did well to remain regulated and prevent escalating when his had difficulties in accepting pt boundary or lashed out at him. Pt?s relationship continues to be a stressor as they have regular conflict regarding the relationship and pt?s mental health. Pt will continue IOP tx to prevent decompensation, improve communication within interpersonal relationships, and increase healthy coping skills Time Stopped:: 11:49
--- NOTE | 2023-08-31 09:05 | BH.SGPN.GN ---
Behaviors/Verbalizations/Mental Status: [] Eye contact is good. Motor activity is appropriate. Appearance is casual. Speech is Appropriate. Mood is euthymic. Affect is full. Thoughts are linear and logical. No evidence of psychosis. Reviewed daily check in sheet and no reports of suicidal ideations or intent. Client Response/Progress/Benefit: [] Pt participated at times during the group discussion. Attentive. Shared with the group his struggles with fixating a lot and certain hobbies such as exercising. Discussed how his obsessions can leave him drained and overwhelmed which impacts his anger, depression, and relationships. These obsessive thoughts can also lead to avoiding social events. Working with program therapist he is trying to challenge, accept, and set boundaries on his fixations and has seen some benefits. Less rigid thoughts and more flexibility recently. Also shared an example this weekend in which he utilized assertive communication skills which helped during an argument. He notes placing significant effort into his mental health and is seeing progress. Benefited from group support, encouragement, and feedback. Will continue in IOP to prevent decompensation, decrease intrusive thoughts, and improve functioning. Narrative Note: []
--- NOTE | 2023-08-31 10:10 | BH.SGPN.GN ---
Behaviors/Verbalizations/Mental Status: [] Client alert and oriented, casually dressed and groomed. Eye contact good. Motor activity appropriate. Speech within normal limits. Affect congruent, mood euthymic. Thoughts linear, logical, no signs of hallucinations or delusions. Client Response/Progress/Benefit: [] Client responded well to session AEB sharing and listening attentively to others. Group provided examples of benefits of having social support, including: feeling like you matter, security, and motivation. Client also participated in group discussion regarding the barriers to accessing support including personal examples like: not reaching out, lack of communication, and over using certain supports. Client participated in experiential activity illustrating the impact communication, boundaries, and patience play in creating healthy support systems. Client appeared to benefit from increased knowledge of the benefits of social support and greater self-awareness. Will continue IOP tx to prevent decompensation, reduce negative self-talk, and improve overall functioning. Narrative Note: []
--- NOTE | 2023-08-31 11:10 | BH.SGPN.GN ---
Behaviors/Verbalizations/Mental Status: [] Client alert and oriented, casually dressed and groomed. Eye contact good. Motor activity appropriate. Speech within normal limits. Affect congruent, mood euthymic. Thoughts linear, logical, no signs of hallucinations or delusions. Client Response/Progress/Benefit: [] Client was an active participant throughout AEB contributing to discussion, providing personal examples, and taking notes. Client processed emotions felt in the activity and how they coped in the moment. Client provided input during discussion on the types of support our supports can provide. Client able to identify current support system and barriers that get in the way of using supports by drawing out their own support net. Client reported after identifying what type of supports they receive; they gained awareness that they could benefit from more social supports. Client identified steps to achieve this by changing habits, reaching out to 1 friend and ask to meet weekly,and starting 1 new program. Client shared increasing this support will help them by getting more support, guidance, and motivation from others . Client seemed to benefit from identifying the type of support client needs to work on improving. Client recommended to continue IOP tx to prevent decompensation, challenge thinking patters, and increase emotional regulation skills. Narrative Note: []
--- NOTE | 2023-08-31 14:50 | BH.MTP_ITS ---
Treatment Plan Review Demographics Date of Admission:: 08/10/23 Date of Treatment Plan Review:: 08/31/23 Admitting Diagnoses:: 1. Major depressive disorder, 2. Intermittent explosive disorder (F63.81) 3. ADHD 4. Rule out autism spectrum disorder high functioning Current Diagnoses:: 1. Major depressive disorder, 2. Intermittent explosive disorder (F63.81) 3. ADHD 4. Rule out autism spectrum disorder high functioning Patient Status Patient's Response to Treatment:: Pt has responded well to treatment AEB pt consistently attending IOP sessions and reduction of anxiety, intrusive thoughts, and OCD symptoms since admission. Pt contributes well during individual sessions and he is engaged during group sessions. Pt applies coping skills outside of IOP and reports overall mood and distress tolerance is improved. Pt does however report ongoing difficulties with inappropriate guilt and interpersonal conflict within the relationship with his . Status of Current Problems and Symptoms: Pt reports improvements in mood and overall ability to manage his mental health sx. Pt scores for depression have increased from a 1/8 to a 2/8 since beginning the IOP program. He reports beliefs he may have minimized his sx at the time of admission, as well as discussed some feelings of hopelessness giving his ?s ongoing medical issues and struggling with seeing her in pain. Reports he is working on trying to be empathetic and supportive to her without taking on her emotional pain as well. Pt reports he is seeing much improvement in his ability to stay calm when facing conflict, establish healthier boundaries in a more assertive rather than aggressive manner, as well as better manage his anger/irritability without escalating to the point of lashing out. Pt continues to endorse anxiety, avoidance of setting some boundaries with his , and ongoing difficulties communicating effectively in moments he is overwhelmed, feels criticized, or unfairly attacked. Pt also reports stressors with finances. Progress Problem #1: Problem Name:: Depression, irritability, worthlessness, and negative thin montez patterns. Status of Goals:: Objective 1- in progress, ongoing work encouraged. Pt?s DSM-5 scores for thoughts of and SI have remained a zero since admission. Pt?s irritability scores have maintained since admission; however, pt does report improved ability to manage his irritability and prevent further sx escalation. Depression sx have seen a slight increase and pt self-reports minimizing on initial assessment, as well as indicates increase depression/hopelessness related to his ?s recent exacerbation of physical health sx. Pt reports using deep breathing, going to a new environment to take a break, and progressive muscle relaxation as calming skills. He does report improved ability to maintain calm and regulated when faced with frustrations and unexpected conflict. Objective 2- in progress. Pt is working on improving his ability to identify and challenge distorted thought patterns. He has been keeping a journal which her reports is helping him to challenge his perspective. Pt does continue to struggle with inappropriate guilt at times. Team Recommendations:: Tx team recommends that pt continue working on these goals as pt can benefit from identifying and reframing distortions and utilizing healthy coping skills. Pt is also encouraged to continue working combatting inappropriate guilt and establishing firmer boundaries with his to reduce unnecessary triggers for worthlessness and anger. Problem #2: Problem Name:: Anxiety, avoidance, ruminations. Status of Goals:: Objective 1- complete with ongoing work encouraged. Pt?s DSM-5 scores for anxiety have decreased by 33% since admission. Pt reports using deep breathing and more effectively communicating concerns with his to manage anxiety and reduce unnecessary rumination. When experiencing ruminating thoughts or anxiety related to conflict within his marriage, he is taking breaks and coming back to process when clearer, as well as asking for supportive feedback from his treatment team. Pt is able to identify several anxiety tr iggers and reports actively implementing skills he is learning to best manage them as they occur. Objective 2- in progress. Pt is gaining awareness of the benefits of healthy distress tolerance skills and reports connecting with several of the grounding and DBT skills he has learned. He has been working on practicing these regularly but continues to report variable effectiveness as he is still improving upon consistency in this area. Team Recommendations:: Pt is encouraged to continue working on this goal as pt can further reduce anxiety and increase distress tolerance skills. Pt encouraged to continue working on boundary setting and scheduling self-care.
--- NOTE | 2023-08-31 15:04 | BH.MDN_ITS ---
Multi-Disciplinary Note Note 30-min Individual: Time Started:: 12:10 Date: 08/31/23 Purpose of session/treatment goals addressed:: Progress reported. Pt reports improvement in depression and anxiety, as well as better communication with his during times of conflict. He is regularly using skills like deep breathing, walks/time outdoors, progressive muscle relaxation, and taking breaks when feeling he is becoming dysregulated. However, pt reports continued difficulties in de-escalating conflict when his is upset and struggling with inappropriate guilt when unable to. Pt continues to struggle with low self-esteem, poor boundaries, and interpersonal conflict. He is recommended continued IOP tx to improve emotion regulation and application of distress tolerance skills, encourage healthy boundary setting, and prevent decompensation. Eye Contact:: Good Motor Activity:: Appropriate and Restless Appearance:: Casual Speech:: Pressured Mood:: Euthymic and Anxious Affect:: Congruent Thoughts:: Linear, Logical and No evidence of hallucinations/delusions noted Staff Interventions:: motivational interviewing, CBT techniques, strengths perspective, treatment planning, reviewed DSM-5 and other (reviewed types of support) Client Response:: Pt receptive of session, actively engaged and openly discussed current sx, stressors, and progress. Reports he feels he has made progress with better managing his emotions and preventing irritability from escalating to a point he cannot regulate. Additionally, pt reflected on improvements in perspective, ability to challenge negative thoughts, as well as improved clarity of thought. He reports finding that his medication paired with keeping a daily ?wins? journal, practicing progressive muscle relaxation, taking breaks, and deep breathing techniques have been most helpful in progress made. Pt discussed ongoing marital issues related to his continuing to bring up past issues or arguments in fights. Pt reports that he has been doing well to set a boundary of addressing the topic once but not continuing to focus on it in future disagreements. Discussed practicing letting her know when he is getting irritated and taking a break to prevent further conflict escalation. Pt reports wanting to continue to focus on improving his conflict management, healthy communication, and boundary setting skills in tx moving forward. Discussed a concern today regarding his ?s upcoming endometriosis surgery. Shared he wants to be supportive and empathetic, but does not know what to do, say, or how to help in moments he can tell she?s in pain. Pt receptive of discussion on different types of support and that asking her when she is now in pain about how he could support her moving forward. Pt reports plans to discuss with her why types of tangible support he could provide to reduce stress during those times as well. Pt additionally requested that this therapist call his next week to provide an update on pt treatment progress and where she may have ongoing concerns. Risks/Concerns:: None noted. Pt denies SI, plan, or intent as of this date, 08/31/23. Progress Toward Goals/Plan:: Progress reported. Pt reports improvement in depression and anxiety, as well as better communication with his during times of conflict. He is regularly using skills like deep breathing, walks/time outdoors, progressive muscle relaxation, and taking breaks when feeling he is becoming dysregulated. However, pt reports continued difficulties in de- escalating conflict when his is upset and struggling with inappropriate guilt when unable to. Pt continues to struggle with low self-esteem, poor boundaries, and interpersonal conflict. He is recommended continued IOP tx to improve emotion regulation and application of distress tolerance skills, encourage healthy boundary setting, and prevent decompensation. Time Stopped:: 12:43
--- NOTE | 2023-09-02 09:05 | BH.SGPN.GN ---
Behaviors/Verbalizations/Mental Status: [Patient was alert and oriented, appropriately dressed and groomed. Eye contact was good, motor activity normal, speech within normal limits. Affect congruent, mood content. Thoughts linear, logical, no signs of hallucinations or delusions. Reviewed Patients symptom tracker and the patient reports low/moderate in anxiety/panic attacks and no symptoms in depressed mood, agitation, self-harm urges or thoughts/risk of suicide. ] Client Response/Progress/Benefit: [Patient was engaged and open to the discussion. Patient reported his mood to be ?stressed?. Patient stated his first win was that he has been doing more selfcare and listening to an audiobook. His second win is that he started a new medication this week that has really helped his intermittent explosive disorder. Patient started his stressor was that he had to take his to the emergency room yesterday because of her physical health. The news they got was kind of upsetting and they may not have the ability to have children now. Patient was interactive and respectful with other group members about their mental wins and stressors. Patient benefited from the discussion by listening to feedback and giving input on his peer?s stressors and mental health wins. Patient will continue with IOP treatment to help develop healthy skills, promote mood stability, and improve distress tolerance. ] Narrative Note: []
--- NOTE | 2023-09-02 10:10 | BH.SGPN.GN ---
Behaviors/Verbalizations/Mental Status: [] Eye contact is good. Motor activity is appropriate. Appearance is casual. Speech is Appropriate. Mood is anxious. Affect is congruent. Thoughts are linear and logical. No evidence of psychosis. Client Response/Progress/Benefit: [] Patient was an active participant in group discussions. Attentive during psychoeducation on growth mindset. Participated during the activity. Interactive group discussion on growth mindset in which group verbalized their current fixed mindsets and how they affect their mental health. Patient shared common fixed mindset thoughts they have which included If I make a mistake I will fail; If the house is slightly dirty than I'm a mess; if my workout plans aren't structured 100% accurately then they won't work?. These thoughts lead to pt feeling stressed, anxious, and scatter brained . Patient benefited from increased awareness of growth mindset and fixed thoughts and how fixed thoughts impact their mental health. Will continue in IOP to prevent decompensation, increase healthy coping, and improve functioning. Narrative Note: []
--- NOTE | 2023-09-02 11:15 | BH.SGPN.GN ---
Behaviors/Verbalizations/Mental Status: []Pt alert and oriented, casually dressed and groomed. Eye contact good. Motor activity appropriate. Speech within normal limits. Affect congruent, mood anxious and content. Thoughts linear, logical, no signs of hallucinations or delusions. Client Response/Progress/Benefit: [] Pt was an active participant during activity and discussion AEB providing some input when prompted, connecting with peers, as well as taking notes throughout. Pt did well to participate as group worked on identifying characteristics and benefits of adopting a growth mindset. Worked with fellow participants in reframing the example fixed thoughts into growth mindset thoughts. Pt worked on changing own fixed thought of If I make a mistake, I will fail to a more growth mindset thought of Making mistakes can allow me to learn and grow . Receptive of discussing benefits of growth mindset and brainstorming strategies for prompting growth-mindset. Pt appeared to benefit from working in small groups to challenge own thoughts and help peers. Pt will continue IOP tx to improve mood stability, reduce inappropriate guilt, and improve daily functioning. Narrative Note: []
--- NOTE | 2023-09-08 09:05 | BH.SGPN.GN ---
Behaviors/Verbalizations/Mental Status: [] Eye contact is good. Motor activity is appropriate. Appearance is casual. Speech is Appropriate. Mood is euthymic. Affect is full. Thoughts are linear and logical. No evidence of psychosis. Reviewed daily check in sheet and no reports of suicidal ideations or intent. Client Response/Progress/Benefit: [] Pt was an active participant in group discussion. Attentive. Pt shared how the impact that ADHD and Autism diagnoses have had on his impulsivity, relationships, routines, work, and mood management over the years. Focused on the struggles that he has had as well as how IOP classes have helped him learn and practice new skills. He shared an event yesterday that lead to frustration and the skills that he utilizes to manage his frustration. Utilized a mixture of distraction, mindful, and though reframing stating it worked . Able to decrease anger and communicate effectively. Emotion for today is courageous Progress noted per pt report. Will continue in IOP to prevent decompensation, stabilize mood, and increase healthy coping. Narrative Note: []
--- NOTE | 2023-09-08 10:20 | BH.SGPN.GN ---
Behaviors/Verbalizations/Mental Status: []Pt alert and oriented, neatly dressed and groomed. Eye contact good. Motor activity appropriate. Speech within normal limits. Affect congruent, mood euthymic. Thoughts linear, logical, no signs of hallucinations or delusions. Client Response/Progress/Benefit: [] Client connected with topic of Anxiety and participated throughout, providing input and taking notes. Participated throughout interactive discussion defining anxiety and identifying cognitive and physiological symptoms of anxiety. Group discussed how anxiety can prevent them from trying new things. Common physical and cognitive symptoms identified by group included: ?what if thoughts?, ?fear of failure?, negative self-talk, increased heart rate, restlessness, and getting sick more frequently. Client identified avoidance as his safety behavior. Pt shared he has been working on reducing this. Benefited from increased awareness and insight on anxiety and its impact. Pt will continue IOP tx to promote mood stability, further increase emotional regulation skills, and improve communication skills. Narrative Note: []
--- NOTE | 2023-09-08 10:31 | BH.MDN ---
Multi-Disciplinary Note Note 45-min Individual: Time Started:: 08:18 Date: 09/08/23 Purpose of session/treatment goals addressed:: Purpose of session was to address tx plan goal #1 obj #1 and goal #2 obj#1. Eye Contact:: Good Motor Activity:: Appropriate Appearance:: Neat and Casual Speech:: Appropriate Mood:: Euthymic and Anxious Affect:: Congruent Thoughts:: Linear, Logical and No evidence of hallucinations/delusions noted Staff Interventions:: thought challenging, motivational interviewing, psychoeducation on: (self-compassion), CBT techniques and strengths perspective Client Response:: Pt responded well to session, reporting that things are ?going good? and he is feeling more capable of managing his mental health sx. Pt discussed connecting with the ?self-care? topic from a previous group he was in. Shared that since having the group he has been making regular self-care goals for himself until these goals become habits. Pt shared his current goals are to keep a regular ?to-do? list on his white board, read or listen to 20 minutes of an audible daily, as well as complete a daily devotional for himself. Shared these goals focus on the spirituality, emotional, and psychological areas of self-care. Pt went on to describe feeling more focused, confident, and present in the weeks since beginning IOP tx. Discussed ongoing difficulties in navigating his relationship with his . Shared that they have made some progress in communication and conflict resolution, describing a recent discussion on skills they learned in their couple?s therapy session. Pt reports that his continues to struggle with physical health issues which may impede their ability to have a biological child in the future. Pt shared that although he is anxious and somewhat sad about this, he is trying to life in the present and not worry about it until they have more information. Receptive of discussion on self-compassion and recognizing suffering as a part of life. Able to identify that ruminating on the ?what if?s? may be adding additional ?unnecessary suffering? to an already difficult period. Pt reported that he is trying to prevent from allowing stressors to dictate whether he has a ?good? or ?bad? day. Shared however that his struggles at times with not allowing stressors to impact her mood and she at times becomes upset when pt does not appear as emotionally impacted as she is. Did well to identify that he is not responsible for how she processes and expresses her emotions. Shared plans to work on trying to communicate how he feels and that although he is deeply impacted emotionally by these stressors, he is trying to recognize that within grief and suffering, he can also experience bimal and hope. Risks/Concerns:: None noted. Pt denies suicidal ideation, plan, or intent as of this date 09/08/23. Progress Toward Goals/Plan:: Progress noted. Pt reports improvements in concentration, mindfulness, self-confidence, and self-care since beginning the IOP program. He reports more consistently applying emotion regulation and distress tolerance skills and has not had an anger outburst in the past month. Pt shared he believes this is in part due to medication changes, as well as active use of talking breaks, deep breathing, and establishing healthier boundaries with his . Pt does continue to struggle with misinterpreting communication/body language, negative/existential thoughts, and stress management. Pt is more regularly getting back into activities he enjoys but can benefit from continuing to focus on this. Recommended continued IOP tx to reduce negative thinking, improve communication, and prevent decompensation. Time Stopped:: 08:56
--- NOTE | 2023-09-08 11:15 | BH.SGPN.GN ---
Behaviors/Verbalizations/Mental Status: []Pt alert and oriented, causal appearance. Eye contact fair. Motor activity appropriate. Speech within normal limits. Affect congruent, mood euthymic. Thoughts linear, logical, no signs of hallucinations or delusions. Client Response/Progress/Benefit: [] Pt was an active participant AEB pt providing input and listening attentively to peers. Attentive during psychoeducation on mindfulness coping skills and their impact on reducing anxiety and improving overall mental health wellness. Group was able to identify self-soothing and mind-based coping skills which included: 5-senses, meditation, deep breathing, journaling, and progressive muscle relaxation. Pt also participated with peers in practicing mindfulness skills in session. Pt would like to work on belly breathing and progressive muscle relaxation. Appeared to benefit from increasing repertoire of anxiety reduction skills. Pt will continue in IOP tx to improve healthy coping skills, challenge distortions, and prevent decompensation.
--- NOTE | 2023-09-14 09:05 | BH.SGPN.GN ---
Behaviors/Verbalizations/Mental Status: [Patient was alert and oriented, appropriately dressed and groomed. Eye contact was good, motor activity normal, speech within normal limits. Affect congruent, mood content. Thoughts linear, logical, no signs of hallucinations or delusions. Reviewed Patients symptom tracker and the patient reports depressed mood, anxiety/panic attacks, agitation/irritability/anger, self-harm risk, and thoughts/risk of suicide within normal limits.] Client Response/Progress/Benefit: [Patient was engaged and open to the discussion. Patient reported his mood to be ?positive?. ?Patients first win was that he feels that he is listening to his body more and is making a new default for himself. His second win was he has been utilizing behavior activation and made himself do some chores yesterday that he didn?t want to do. Patients stressor is that he is switching his ADHD medication and is afraid of the mood swings it may give him. Patient was interactive and respectful with other group members about their mental wins and stressors. Patient benefited from the discussion by listening to feedback and giving input on his peer?s stressors and mental health wins. Patient will continue with IOP treatment to help develop healthy skills, promote mood stability, and improve distress tolerance. ] Narrative Note: []
--- NOTE | 2023-09-14 10:15 | BH.SGPN.GN ---
Behaviors/Verbalizations/Mental Status: []Patient was alert and oriented, casually dressed and groomed. Eye contact was good, motor activity normal, speech within normal limits. Affect congruent, mood content. Thoughts linear, logical, no signs of hallucinations or delusion Client Response/Progress/Benefit: [] Pt was an active participant in the group discussions AEB providing input and taking notes. Attentive during psychoeducation Goal Setting. Participated during the discussion on common barriers lack of motivation, making excuses, not feeling good enough, and lack of support. Group also identified benefits sense of purpose, improved self-confidence, more motivation for other goals, and improved mental health. Pt reports struggling specifically with barriers of self-doubt, unrealistic expectations, and fear of failure. Benefited from increased awareness of mental health benefits of goals as well as psychoeducation on SMART goal criteria. Will continue in IOP to promote gains, further combat distorted thinking, and improve daily functioning. Narrative Note: []
--- NOTE | 2023-09-14 11:15 | BH.SGPN.GN ---
Behaviors/Verbalizations/Mental Status: []Pt alert and oriented, neatly dressed and groomed. Eye contact good. Motor activity appropriate. Speech within normal limits. Affect congruent, mood euthymic. Thoughts linear, logical, no signs of hallucinations or delusions Client Response/Progress/Benefit: [] Pt was engaged during discussion and willing to complete the worksheet challenging them to develop a personal SMART goal. Pt chose the goal of dusting at least one room every week. Pt stated this will help pt feel healthier and keep pt on a schedule. Pt identified forgetting and the task being boring as barriers. Identified solutions such as listening to song or book and scheduling a time of day. Pt receptive to identifying solutions for these barriers and willing to begin working on this goal. Benefited from this group by developing a short-term SMART goal related to mental health. Will continue IOP tx to improve self-compassion, increase self-love, and reduce guilt. Narrative Note: []
--- NOTE | 2023-09-14 12:25 | PCM.BH.PN ---
Progress Note Progress Note: History of Present Illness/Interim History: The patient is a 28-year-old male with a history of depression, intermittent explosive disorder, ADHD, anxiety and possible autism who is seen in follow-up at the [facility] [place] behavioral health IOP. Last saw the patient about 1 month ago and at that time no medication changes were made. The patient has been consistently attending and engaged in the program and has been making progress according to the staff. He is using the skills that has been taught and feels he is better able to communicate and this has lessened his stress. The patient states that he feels much better overall when he started the program and he has not had any anger outburst since I last saw him. He denies passive thoughts of or any suicidal ideation. He is still sleeping 7 to 8 hours a night and is ruminating much less than before. He also denies plan for suicide, suicidal ideation, homicidal ideation, hallucinations, delusions. Current Psychiatric Medications: [] Vyvanse 20 mg p.o. every morning; Lexapro 10 mg p.o. daily (x 5 weeks). He discontinued his 5-HT supplement as directed by me. Mental Status Examination: [] The patient is a 28-year-old male wearing glasses and ambulatory with a normal gait who appears normal for stated age and is casually dressed and groomed with good hygiene. He has no psychomotor agitation or retardation. He is cooperative during the interview. Eye contact is good and speech is normal rate and rhythm and fluent with no pressure. Mood is minimally depressed. Affect is full and normal. Thought process is goal-directed and organized. Thought content: There is no evidence of passive thoughts of , suicidal ideation, homicidal ideation, plan for suicide, hallucinations or delusions. Patient is hopeful for the future. Reality testing is intact. Intelligence is above average. Judgment is intact. Insight is fair. Diagnoses: [] 1. Major depressive disorder in partial remission (F33.41) 2. Intermittent explosive disorder (F63.81) 3. ADHD 4. Rule out autism spectrum disorder high functioning 5. Primary support issues Plan: [] The patient will continue the IOP at [facility] [place] as the structure, support, education and group therapy will hopefully continue to benefit the patient. He felt safe during the interview and if it anytime he does not feel safe he will let us know or go to the emergency room. No medication changes were made today. The patient discussed that but due to shortages of his stimulant medication his ADD doctor is changing him to generic Adderall immediate release 20 mg p.o. twice daily because he will be unable to get his Vyvanse or Adderall XR for a while. He has done this in the past and tolerates it well according to the patient. He will continue to follow-up with his outpatient providers and I will see him in follow-up while he is in the IOP.
--- NOTE | 2023-09-15 08:15 | BH.MDN ---
Multi-Disciplinary Note Note 30-min Individual: Time Started:: 08:15 Date: 09/15/23 Purpose of session/treatment goals addressed:: Purpose of session was to aid pt in processing recent stressor impacting pt anxiety and resulting in increased marital stress. Eye Contact:: Good Motor Activity:: Appropriate Appearance:: Neat and Casual Speech:: Appropriate Mood:: Anxious and Dysthymic Affect:: Congruent Thoughts:: Linear, Logical and No evidence of hallucinations/delusions noted Staff Interventions:: thought challenging, CBT techniques, discharge planning and strengths perspective Client Response:: Pt reports feeling a little anxious and ?upset for my ?, explaining that she recently found out that her ongoing medical issues may affect her fertility. Pt shared that he has been struggling with knowing how to best comfort his . Described her insecurities in the relationship and fears of abandonment have been triggered by the news. Pt explained that although he would be sad if they could not have biological children, it would not change the way he feels about his or his commitment to their marriage. Noted struggling to effectively reassure her of this. Shared difficulties preventing conflict when she is feeling insecure, explaining that his often makes statements such as ?you don?t even understand your ?. Additionally, described comments his [id number] has made regarding disappointment she may not have a biological grandchild. Shared this further escalates his ?s anxiety and irritability. Pt has encouraged his to establish boundaries with her mother to prevent discussing the topic. Pt and therapist spent majority of session challenging his inappropriate guilt and use of personalization. Did well to identify that he does not need to fully understand in order to be a healthy support and that he is not responsible for ?fixing? the stressor or his ?s emotions. Pt and therapist reviewed ways in which he can be supportive without taking on emotional responsibility for her pain. Identified several statements he can make when recognizing she is struggling. By end of session, pt reported an improved mood and sense of confidence in navigating current stressor. Risks/Concerns:: None noted. Pt denies suicidal ideation, plan, or intent as of this date 09/15/23. Progress Toward Goals/Plan:: Progress noted. Pt reports continued improvements in mood, hopefulness, ability to challenge his perspective, and emotion regulation. Pt reports continued consistency with self-care and application of regular coping skills. Denies any anger outbursts in the past 5 weeks. Pt does report ongoing marital conflict for which they are in couples counseling. Despite this, pt reports improvements in his ability to communicate and maintain regulated when his is dysregulated. This has prevented unnecessary additional conflict. Pt notes this continues to be a major source of stress for him however. Recommended continued IOP tx to maintain mood stability and prevent decompensation prior to d/c next week. Time Stopped:: 08:45
--- NOTE | 2023-09-15 09:05 | BH.SGPN.GN ---
Behaviors/Verbalizations/Mental Status: []Eye contact is good. Motor activity is appropriate. Appearance is casual. Speech is Appropriate. Mood is anxious. Affect is congruent. Thoughts are linear and logical. No evidence of psychosis. Reviewed daily check in sheet and no reports of suicidal ideations or intent. Client Response/Progress/Benefit: []Pt responded well to session, attentive and receptive to feedback from peers. Pt reports feeling intimidated this morning as pt has an upcoming trip planned with his and he is worried about being in charge of arranging dinner plans for their anniversary. Pt shared he feels this way because I had a really bad outburst on our honeymoon and that led me to IOP. Pt stated he has been working hard to regulate his emotions and he has been using healthy coping skills. Pt reports his has noticed the progress as well, but pt is still nervous that he will have setbacks in the future or ruin this trip. Pt received feedback from therapist and peers which helped pt challenge his perspective and encouraged self-compassion. Pt reported benefitting from this feedback and stated that he knows he is getting better every day. Pt also identified a win as using opposite action to accomplish some tasks he has been avoiding. Pt will continue IOP tx to promote gains, further reduce negative thinking patterns, and improve self-confidence. Narrative Note: []
--- NOTE | 2023-09-15 10:15 | BH.SGPN.GN ---
Behaviors/Verbalizations/Mental Status: []Pt alert and oriented, casually dressed and groomed. Eye contact good. Motor activity appropriate. Speech within normal limits. Affect congruent, mood euthymic. Thoughts linear, logical, no signs of hallucinations or delusions. Client Response/Progress/Benefit: []Pt was an active participant in group discussion and activity. Attentive during psychoeducation. Along with peers, pt was able to identify barriers to taking action in their life. Identified several symptoms and stressors that he feels are holding him back from progress such as fear of failure, do it yourself attitude , fear I can't change , and stigma/shame. Stated these things have kept pt from managing conflict in healthy ways, stepping out of his comfort zone and asking for help. Pt shared that he wants to begin addressing the impact negative fixed thinking has had on his ability to take action. Benefited from increased self-awareness of obstacles. Will continue IOP tx to continue to promote mood stability and consistent skill application, and further reduce distorted thinking. Narrative Note: []
--- NOTE | 2023-09-15 11:15 | BH.SGPN.GN ---
Behaviors/Verbalizations/Mental Status: []Pt alert and oriented, neat and casually dressed and groomed. Eye contact good. Motor activity appropriate. Speech within normal limits. Affect congruent, mood anxious and euthymic. Thoughts linear, logical, no signs of hallucinations or delusions. Client Response/Progress/Benefit: []Pt responded well to session, taking notes and participating in worksheet discussion. Pt connected with the zones of action/change and that making sustainable change comes from stepping out of one?s comfort zone into the learning zone. Pt set a goal to gain control over his difficulties with becoming hyperfocused/fixated on one topic to the point it distracts from other areas of his life. Pt reported plans to challenge himself to start with scheduling set times to focus on these topics and setting a timer to remind him of when he must stop and engage in another activity. Appeared to benefit from identifying a small goal to benefit mental health. Will continue IOP tx to prevent decompensation, reduce the use of unhealthy coping skills, and improve self-confidence. Narrative Note: []
--- NOTE | 2023-09-28 10:55 | BH.MDN ---
Multi-Disciplinary Note Note 45-min Individual: Time Started:: 09:22 Date: 09/28/23 Purpose of session/treatment goals addressed:: Purpose of session was to aid pt in processing recent stressor impacting pt anxiety and resulting in increased marital stress. Eye Contact:: Good (tearful at times throughout) Motor Activity:: Appropriate Appearance:: Casual Speech:: Appropriate Mood:: Euthymic Affect:: Congruent Thoughts:: Linear, Logical and No evidence of hallucinations/delusions noted Staff Interventions:: motivational interviewing, psychoeducation on: (types of abuse and complex trauma), rapport building, strengths perspective and taught coping skills Client Response:: Pt responded well to session, actively engaged throughout. She reports feeling more positive this morning than Tuesday, indicating she had been anxious and irritable earlier in the week. Shared that she ended up struggling to manage her irritability during the group activity on Tuesday and opted not to participate. Reports apologizing to the group this morning and provided insight regarding a connection between quitting the activity and her hx of self-sabotaging behaviors. Pt reflected that she had been told from a young age she would ?never amount to anything? or be successful. As a result she has historically felt it would be more acceptable to not try rather than prove other?s ?right? if she would try and fail. Shared this has prevented her from personal growth, enable maladaptive coping behaviors and toxic relationships, as well as prevented her from actively internalizing skills and engaging in therapy. Discussed wanting to break this cycle and begin making meaningful changes. Pt identified areas she has already begun working on as more open, honest, and assertive communication within her relationship, advocating for her needs and establishing healthier boundaries proactively, striving to accept her past and understand how it impacts her today, as well as increased vulnerability in therapy. Shared being vulnerable and discussing her emotions and past trauma with the intention of understanding and developing adaptive coping skills has been difficult as it is significantly out of her comfort zone. Reports that in the past she would turn to substance use to avoid feeling vulnerable or addressing difficult emotions. Pt shared following session last week she had felt vulnerable and exposed and immediately after had to address current legal issues, which triggered urges to use. Instead, pt communicated this with her boyfriend who provided emotional support and validation, allowing pt to work through these uncomfortable emotions and prevent relapse. Did well to discuss strategies for coping with unexpected emotions throughout the therapeutic process. Pt identified healthy ?hands on? distraction, spending time with sober supports, and journaling as skills she would like to begin utilizing. Plans to begin a daily journal this week. Risks/Concerns:: None noted. Pt denies suicidal ideation, plan, or intent as of this date 09/28/23. Progress Toward Goals/Plan:: Progress noted. Pt reports improvements in mood, ability to challenge her perspective, and emotion regulation. Pt reports beginning to more effectively communicate with her boyfriend which has reduced conflict and anxiety as well. Pt has been receptive of psychoeducation on trauma and it?s impact on emotion regulation. Pt would like to continue to learn and understand how her childhood trauma has impacted her as an adult and develop healthier coping mechanisms. Pt continues to struggle with mood stability, anxiety and intrusive thoughts, self-worth, and managing stress related to her current relationship which is toxic to pt?s mental health. Pt also has a hx of inconsistent skill application and tx engagement. Recommended continued IOP tx to stabilize mood, prevent relapse, develop more adaptive coping skills, and prevent decompensation. Time Stopped:: 10:01
== END 2023-09-21 23:59 ==
LOC: BHIOP 07:31
PROVIDERS: Referring Provider Psychiatry & Neurology Psychiatry; Visit Provider Psychiatry & Neurology Psychiatry
DX: F33.41 Major depressive disorder, recurrent, in partial remission (principal); F63.81 Intermittent explosive disorder; F90.9 Attention-deficit hyperactivity disorder, unspecified type; Z79.899 Other long term (current) drug therapy
CPT/HCPCS: S9480; 90832; 90834; 90853

== ENCOUNTER 2023-09-22 07:49 | Outpatient (RCR) | payer OTHER, SELFPAY ==
--- NOTE | 2023-09-22 09:10 | BH.SGPN.GN ---
Behaviors/Verbalizations/Mental Status: []Eye contact good, casually dressed, motor activity appropriate, restless, speech normal rate and tone, mood content, congruent affect, thoughts linear and intact, no evidence of delusions or hallucinations. Reviewed pt's symptom tracker, no suicidal ideation, plan, or intent as of this date 09/22/23. Client Response/Progress/Benefit: []Pt responded well to session, attentive and providing supportive feedback throughout. Pt reports feeling ?stressed this morning as he has been very busy with work this week. Identified mental health ?wins? as making progress on communicating his self-care needs with his and advocating for time for himself despite initially feeling anxious about doing so. Shared reminding himself of the importance of self-care. Additional win identified as receiving a positive review at work and allowing himself to celebrate this rather than minimize. Pt stressor continues to be making time for self-care during this busier work week. Did well to identify small self-care activities he can engage in throughout the remainder of the week. Shared plans to go for a hike following group today. Receptive of and appearing to benefit from supportive feedback and suggestions from the group. Pt to d/c from [facility] tx tomorrow given progress made and continue with individual outpatient providers.. Narrative Note: []
--- NOTE | 2023-09-22 10:17 | BH.MDN_ITS ---
Multi-Disciplinary Note Note 30-min Individual: Time Started:: 10:05 Date: 09/22/23 Purpose of session/treatment goals addressed:: To work on goal of pt's treatment plan. Another goal was to discuss upcoming discharge. Eye Contact:: Good Motor Activity:: Appropriate Appearance:: Casual Speech:: Pressured and Tangential Mood:: Anxious and Dysthymic Affect:: Congruent Thoughts:: Linear, Logical and No evidence of hallucinations/delusions noted Staff Interventions:: thought challenging, motivational interviewing, CBT techniques, discharge planning and reviewed DSM-5 Client Response:: Pt responded well to session, open to meeting with niyah veliz. Pt reports feeling a little down and distracted as he has had a busy work week. Pt additionally noted that since switching from Vyvanse to Adderall, his medication seems to wear off faster. Went on to explain he has been up since 2am as he was unable to sleep due to thinking about several work projects coming up. Discussed feeling burnt out as he has been working 12-hour days without much of a break but know he will be back on a regular schedule next week. Discussed wanting to have time for self-care but is worried his will feel left out and get upset if he says he wants to do something independently today. Did well to identify and challenge inappropriate guilt, as well as identify the benefits of giving himself time alone. Noted this would prevent unnecessary conflict as forcing himself to be social may result in increased irritability. Pt did well to identify ways he can communicate his needs in an assertive manner. Plans to go for a hike this afternoon and encourage his to do something for herself during that time as well. Pt stated she is feeling better now that he was able to decompress. Pt feels ready for discharge and is planning to continue with his outpatient weekly. Reviewed discharge plan and pt reports he is unable to do the aftercare program as he and his will be moving in the near future. Risks/Concerns:: Pt denies any suicidal ideations or thoughts of . Progress Toward Goals/Plan:: Pt has made progress towards his tx goals AEB self-report of improved mood and overall better functioning. Pt denies hopelessness, worthlessness, and reports his panic attacks and verbal anger outbursts have decreased. Pt is looking forward to moving out of town and feels ready to discharge from IOP tomorrow. Pt will continue with individual outpatient counseling with Dr. Doroteo Jean-Baptiste at [facility], Couple?s counseling, and medication management with Dr. Maikel Lovell. Time Stopped:: 10:35
--- NOTE | 2023-09-23 09:05 | BH.SGPN.GN ---
Behaviors/Verbalizations/Mental Status: [Patient was alert and oriented, appropriately dressed and groomed. Eye contact was good, motor activity normal, speech within normal limits. Affect congruent, mood content. Thoughts linear, logical, no signs of hallucinations or delusions. Reviewed Patients symptom tracker and the patient reports depressed mood, anxiety/panic attacks, agitation/irritability/anger, self-harm risk, and thoughts/risk of suicide within normal limits.] Client Response/Progress/Benefit: [Patient was engaged and open to the discussion. Patient reported his mood to be ?drained?. Patients last day is today, and he is both happy and nervous about this. Patients first win is that he has had a bad, overwhelming week but he believes that because he has been in IOP, he has been able to manage this better than he would have before. Patients second win is that he is calling off work today to give himself a ?mental health day? and knows his job will be okay with it. Patients stressor is that he overworked himself because he had a yearly review based on his work. Although he said he did well, he overly stressed about it. Patient was interactive and respectful with other group members about their mental wins and stressors. Patient benefited from the discussion by listening to feedback and giving input on his peer?s stressors and mental health wins. Patient will continue with IOP treatment to help develop healthy skills, promote mood stability, and improve distress tolerance. ] Narrative Note: []
--- NOTE | 2023-09-23 10:10 | BH.SGPN.GN ---
Behaviors/Verbalizations/Mental Status: [] Eye contact is good. Motor activity is appropriate. Appearance is casual. Speech is Appropriate. Mood is dysthymic. Affect is congruent. Thoughts are linear and logical, at times appearing distracted. No evidence of psychosis. Client Response/Progress/Benefit: []Pt engaged participant AEB listening to others, engaging in activity, and providing feedback at times. Attentive during psychoeducation and provided insight into obstacles the impede mental wellness. Pt shared with group current mental health reality and desired mental health reality. Stated using assertive communication to advocate for his needs with his as a step he is currently making to get closer to desired reality. Identified barriers to desired reality include: Avoidance, not asking for help, and unrealistic expectations of self. Benefited from taking look at current mental health state and obstacles for progress. Pt to d/c from IOP given progress and continue with outpatient providers to maintain gains and prevent decompensation. Narrative Note: []
--- NOTE | 2023-09-23 10:21 | BH.DS ---
Discharge Summary Demographics Discharge Date: 09/23/23 Presenting Problems at Admission:: The patient is a 28-year-old male with a history of depression, intermittent explosive disorder, ADHD, anxiety and possible autism who was referred to the [facility] behavioral health IOP by his outpatient counselor. Patient got in June 2023 and his mental health symptoms worsened after he got and reports having an anger outburst on his honeymoon following a disagreement with his . Reports some marital tension since and pt has experienced guilt, passive SI, and some worthlessness/hopelessness since .Patient reports an additional stressor as recent ADHD diagnosis. Reports he found out his father had ADD in the past and he never told the patient about it and the patient became angry that his father had not told him he was at risk for it. The patient has been perseverating on the evil in the world. Reports this was triggered by patient being fired in 2019 from his job and he appealed his unemployment claim but he lost the appeal which caused a lot of stress and anger. He has a history of lifelong issues with anger and social functioning. He denies any history of violence towards people but states he has been violent towards personal property. He endorses sadness and anger, hopelessness, worthlessness, guilt and passive thoughts of . He states that he has had impulsive thoughts of suicidal ideation but states that he has made verbal threats about suicide only to get attention from his or others. Pt denies homicidal ideation, hallucinations, delusions or symptoms of isela ever. For primary support he had is what he has his and friends and family. He is a worrier by nature and ruminates negatively. He denies panic attacks, OCD, eating disorder, trauma or PTSD. He does not have any access to guns. Discharge Diagnoses:: 1. Major depressive disorder, 2. Intermittent explosive disorder (F63.81) 3. ADHD 4. Rule out autism spectrum disorder high functioning Reason for Discharge:: Pt has accomplished his tx goals AEB reduced DSM-5 scores and improve mood. Pt no longer meets criteria for IOP level of care. Treatment Progress During Treatment & Response: Pt has responded well to treatment as evidenced by Pt consistently attending IOP sessions and reduction of DSM-5 scores since admission. Pt was always attentive and receptive to learning during group and individual sessions. Pt actively applied coping skills outside of IOP and reports overall his mood is improved and he is functioning better than he was several months ago. Pt was consistent with his goals and receptive to learning. Pt?s overall symptom reduction is 82% since admission with depression decreasing by 100%, anxiety decreasing by 67%, intrusive thinking decreasing by 75%, and irritability decreasing by 100%. Pt has increased self-confidence in his ability to manage anxiety, depression, and negative thinking. Pt additionally reports improved communication with his and reduced conflict as a result. Issues Still to be Addressed:: Negative thinking patterns, self-care, interpersonal conflict, and maintenance of healthy coping skills. Discharge Recommendations/Instructions:: Pt will continue with outpatient providers, Doroteo Jean-Baptiste at [facility] for Counseling, Couples Counselor, and Dr. Maikel Lovell for medication management. Discharge Handout
--- NOTE | 2023-09-23 11:10 | BH.SGPN.GN ---
Behaviors/Verbalizations/Mental Status: [] Eye contact is good. Motor activity is appropriate. Appearance is casual. Speech is Appropriate. Mood is depressed/irritable. Affect is congruent. Thoughts are linear and logical. No evidence of psychosis Client Response/Progress/Benefit: [] Pt was an active participant in group discussion and activity. Worked with group to identify strategies to help overcome barriers and obstacles to desired reality. Group developed strategies for the common barriers of avoidance, feeling burned out, unrealistic expectations, emotional reasoning, and difficulty asking for help. Identified personal barriers to desired reality and choose one obstacle to work on this week (Asking for help). Able to identify strategies to implement. Benefited from group by identifying obstacles and solutions to desired reality. Pt is schedule to discharge from [facility] level of care today. Narrative Note: []
== END 2023-09-23 12:11 | disposition home or self-care (01) ==
LOC: BHIOP 07:49
PROVIDERS: Referring Provider Psychiatry & Neurology Psychiatry; Visit Provider Psychiatry & Neurology Psychiatry
DX: F32.9 Major depressive disorder, single episode, unspecified; F63.81 Intermittent explosive disorder; F90.9 Attention-deficit hyperactivity disorder, unspecified type
CPT/HCPCS: S9480; 90832; 90853